=== PATIENT | female | born 1970 | race Caucasian/White ===

== ENCOUNTER 2023-02-16 00:47 | Emergency (ER) | payer OTHER ==
[~2023-02-16 00:47] MED LIST: ATOR20TA PO; CHOL400T56 PO; LEVO100T4 PO; OLAN10TA26 PO
== END 2023-02-16 01:48 | disposition left against medical advice (07) ==
LOC: EMS 00:53
DX: R50.9 Fever, unspecified (principal); Z53.21 Procedure and treatment not carried out due to patient leaving prior to being seen by health care provider